=== PATIENT | female | born 1975 | race Caucasian/White ===

== ENCOUNTER 2021-06-11 04:38 | Emergency (ER) | payer OTHER, SELFPAY ==
--- NOTE | ~2021-06-11 | US_ITS ---
EXAMINATION: US PELVIS CLINICAL INFORMATION: Pain and vaginal discharge. Perimenopausal. COMPARISON: Pelvic ultrasound dated from 06/15/2020. TECHNIQUE: Ultrasound of the pelvis is performed using both transabdominal and transvaginal transducers along with Doppler. Transvaginal imaging is performed due to inadequate visualization transabdominally. FINDINGS: Uterus: The uterus is retroverted and measures 6.0 x 3.3 x 5.3 cm. There is redemonstration of several fibroids as follow: 1. A 1.3 x 0.9 x 1.2 cm fibroid in the left fundus (previously 1.4 x 1.8 x 1.7 cm). 2. A 1.2 x 1.2 x 1.2 cm fibroid in the left fundus (previously 1.1 x 1.0 x 1.1 cm). 3. A 1.7 x 0.7 x 1.8 cm fibroid in the right mid uterine body (previously 1.5 x 0.7 x 1.3 cm). Nabothian cyst are again noted overlying the cervix. The endometrium is not well visualized in this study due to distortion from overlying fibroids and poor acoustic windows in the setting of shadowing from overlying bowel gas. The right ovary measures 2.9 x 2.0 x 1.1 cm for a volume of 3.3 mL. There is a 2.7 x 2.1 x 2.1 cm exophytic anechoic lesion with thin palencia and no associated vascular flow, likely representing a functional follicle which does not require further workup. There is preserved flow to the right ovary on color Doppler. The right ovary is not visualized in these the study. US/US pelvic and transvaginal IMPRESSION: Multiple uterine fibroids. Small nabothian cysts in the cervix. The endometrium and right adnexa are suboptimally evaluated in this study. Therefore abnormalities within these structures are not excluded.
[2021-06-11 07:47] VITALS: BP 153/81; PULSE 103; RESP 18; TEMP 37.2; O2SAT 100; BMI 23.1
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
[2021-06-11 08:44] LABS: MANUAL DIFF FLAG NO
[2021-06-11 08:46] LABS: Basophils Percent Auto 0.2 % (0-2); Eosinophils Absolute Auto 0.2 X10*3/uL (0.0-0.4); Eosinophils Percent Auto 4.2 % (0-4); Hematocrit 38.8 % (37-47); Hemoglobin 12.9 g/dl (12.0-16.0); Lymphocytes Absolute Auto 1.9 X10*3/uL (1.2-4.9); Lymphocytes Percent Auto 37.7 % (20-40); Mean Corpuscular HGB Conc 33.2 g/dl (31.0-35.0); Mean Corpuscular Hemoglobin 31.5 pg (27.0-33.0); Mean Corpuscular Volume 94.9 fL (80-98); Mean Platelet Volume 9.9 fL (9.4-12.3); Monocytes Absolute Auto 0.3 X10*3/uL (0.1-1.2); Monocytes Percent Auto 6.8 % (2-11); Neutrophils Absolute Auto 2.6 X10*3/uL (2.0-8.3); Neutrophils Percent Auto 51.1 % (45-73); Platelet Count 247 X10*3/uL (160-400); Red Blood Count 4.09 X10*6/uL (4.20-5.50); Red Cell Distribution Width 12.4 % (11.0-16.0)
[2021-06-11 09:45] LABS: Alanine Aminotransferase 17 U/L (0-31); Albumin Level 3.7 g/dL (3.5-5.0); Alkaline Phosphatase 127 U/L (39-117); Anion Gap 13 (12-20); Aspartate Amino Transferase 21 U/L (5-31); Bilirubin Direct 0.2 mg/dL (0.0-0.5); Bilirubin Total 0.3 mg/dL (0.0-1.0); Blood Urea Nitrogen 16 mg/dL (9-16); Calcium 9.4 mg/dL (8.4-10.2); Carbon Dioxide 29 mmol/L (22-29); Chloride 105 mmol/L (96-108); Creatinine Clr Calc Pharmacy 95.3; Estimated Glomerular Filt Rate > 60; Glucose Random 92 mg/dL (60-115); Lipase 11 U/L (8-78); Potassium 5.5 mmol/L (3.3-5.1); Sodium 141 mmol/L (135-145); Total Protein 6.2 g/dL (6.5-8.0)
[2021-06-11 09:52] LABS: Appearance Urine CLOUDY; Color Urine YELLOW; Glucose Urine UA NEG (NEG); Leukocyte Esterase Urine 2+ (NEG); Nitrite Urine POS (NEG); Specific Gravity - Urine >= 1.030 (1.005-1.025); UACC Culture Trigger YES; Urine Blood TRACE (NEG); Urine Ketones 5 MG/DL (NEG); Urine Protein 1+ MG/DL (NEG-TRACE)
[2021-06-11 09:56] LABS: UPreg QC Valid YES; Urine Pregnancy NEGATIVE (NEGATIVE)
[2021-06-11 10:02] LABS: Bacteria Urine 3+ /LPF; RBC Urine 0-2 /HPF (0); Squamous Epithelial Cell Urine 1+ /LPF
[2021-06-11] MEDS: Phenazopyridine HCL 200 MG TABLET PO (10:06)
--- NOTE | 2021-06-11 10:49 | PC.NURSE ---
PTS MAIN COMPLAINT TODAY IS DYSURIA. PT TOLERATING PO FLUIDS, NO N/V/D.
[2021-06-11 10:57] VITALS: RESP 18
[2021-06-11 11:00] VITALS: PULSE 70; RESP 8; TEMP 37; O2SAT 97
[2021-06-11 12:45] LABS: CT PCR NOT DETECTED (Not Detect.); NG PCR NOT DETECTED (Not Detect.)
[2021-06-12 08:41] LABS: BV Int Neg Control Negative (Negative); BV Int Pos Control Positive (Positive)
== END 2021-06-11 11:00 | disposition home or self-care (01) ==
PROVIDERS: Emergency Provider Emergency Medicine; PCP Internal Medicine
DX: D25.9 Leiomyoma of uterus, unspecified (principal); N76.0 Acute vaginitis; N30.01 Acute cystitis with hematuria; M54.5 Low back pain; Z79.899 Other long term (current) drug therapy
CPT/HCPCS: 36415; 76830; 76856; 80048; 80076; 81001; 81025; 83690; 85025; 87086; 87088; 87186; 87480; 87491; 87510; 87591; 87660; 99283; 99284

== ENCOUNTER 2021-08-12 13:58 | Emergency (ER) | payer OTHER, SELFPAY ==
--- NOTE | 2021-08-12 | ECG_ITS ---
Test Reason : general medical Blood Pressure : / mmHG Vent. Rate : 100 BPM Atrial Rate : 100 BPM P-R Int : 134 ms QRS Dur : 078 ms QT Int : 352 ms P-R-T Axes : 072 075 050 degrees QTc Int : 454 ms Sinus tachycardia Intra-ventricular conduction delay Otherwise normal ECG When compared with ECG of 15-JUN-2020 04:11, Heart rate has increased Referred By: Generic ED Physician Electronically Signed By:NAVYA VERGARA MD
--- NOTE | ~2021-08-12 | CT_ITS ---
EXAMINATION: CT CHEST WITHOUT CONTRAST CLINICAL INFORMATION: Right lower lobe lung nodule seen on chest radiograph COMPARISON: Chest radiograph earlier today, CT abdomen pelvis 06/15/2020 TECHNIQUE: Multidetector volumetric CT imaging of the chest was done. Axial MIP volume rendering provided. Sagittal and coronal reformatted images were obtained. This CT examination was performed using dose optimization techniques as appropriate, variously including the following: *Automated exposure control *Adjustment of mA and/or kV according to patient size (this includes techniques or standardized protocols for targeted exams where dose is matched to indication/reason for exam; i.e. extremities or head) *Use of iterative reconstruction technique DLP: 322 mGy-cm FINDINGS: LUNGS: No corresponding abnormality is seen to the opacity seen on the chest radiograph. However, a number of incidentally noted small pulmonary micronodules seen ranging in size from 2 to 3 mm to up to 5 mm in size (26:262). One of these nodules was not included on the prior abdominal CT and is unchanged. Images of all nodules have been saved as flores images MEDIASTINUM: The mediastinum is normal. PLEURA: There is no pleural effusion. No pleural mass or thickening. AXILLA: No lymphadenopathy. UPPER ABDOMEN: Again seen are changes of gastric surgery. Hepatic steatosis is present, new since the prior study.. OSSEOUS STRUCTURES: Unremarkable. CT/CT chest wo con IMPRESSION: No abnormality seen on the chest CT to correspond to the abnormality seen on the chest radiograph. Incidentally noted lung nodules up to 5 mm in size. According to the UPDATED 2017 Fleischner Society recommendations, the advised follow-up imaging for solid nodules < 6 mm is: LOW RISK PATIENT: No routine follow-up. HIGH RISK PATIENT: Optional CT at 12 months. Fleischner guidelines were followed.
--- NOTE | ~2021-08-12 | CT_ITS ---
EXAMINATION: CT HEAD WITHOUT CONTRAST CT CERVICAL SPINE WITHOUT CONTRAST CLINICAL INFORMATION: Slurred speech, weakness. COMPARISON: None TECHNIQUE: Contiguous axial imaging was performed from the skull base to vertex without intravenous administration of contrast. Contiguous axial imaging was performed from the upper chest through the skull base without intravenous administration of contrast. Coronal and sagittal reformats were obtained at the acquisition workstation. This CT examination was performed using dose optimization techniques as appropriate, variously including the following: *Automated exposure control *Adjustment of mA and/or kV according to patient size (this includes techniques or standardized protocols for targeted exams where dose is matched to indication/reason for exam; i.e. extremities or head) *Use of iterative reconstruction technique DLP: 79 mGy-cm FINDINGS: Head: There is no evidence of acute intracranial hemorrhage or edematous territorial infarction. There is no abnormal attenuation within the brain parenchyma. Beltran-white matter differentiation is preserved. The ventricles are normal in size and configuration. No evidence for obstructive hydrocephalus. No abnormal mass effect or midline shift. No extra-axial fluid collections. No acute soft tissue or osseous abnormalities. The mastoid air cells and paranasal sinuses are clear. Cervical Spine: The atlantooccipital and atlantoaxial articulations remain well aligned. Straightening of the normal cervical lordosis. Otherwise, there is anatomic alignment of the vertebral bodies and posterior elements. No evidence of acute fracture or subluxation. Mild cervical spondylosis. There is no prevertebral soft tissue swelling. The thyroid gland and remaining cervical soft tissues are normal in appearance. There is a 0.3 cm pulmonary nodule in the right apex (19:346). CT/CT cervical spine wo con IMPRESSION: No acute intracranial pathology. No acute cervical spinal fractures or malalignment. Incidentally noted is made of a 0.3 cm pulmonary nodule in the right upper lobe. This could be follow-up as per Fleischner criteria (see below). Correlate with same day CT chest. 2017 Fleischner Society Recommendations for Lung Nodule(s): Single Solid low risk nodule < 6 mm: No routine follow-up imaging is recommended in low risk and high risk patients. These guidelines do not apply to patients younger than 35 years, immunocompromised patients, and patients with cancer. F/u in patients with significant comorbidities as clinically warranted. For lung cancer screening, adhere to Lung-RADS guidelines. Reference: Radiology. 2017 Mar; 284(1):228-049
--- NOTE | ~2021-08-12 | XR_ITS ---
EXAMINATION: XR CHEST CLINICAL INFORMATION: Diminished lung sounds on exam. COMPARISON: None TECHNIQUE: 2 views of the chest were obtained. FINDINGS: The lungs are well-expanded and clear of acute pneumonic process. The heart size and pulmonary vascularity is normal. There is soft tissue density right CP angle on PA projection question artifact versus nodule. This is not visualized lateral view. No gross bony abnormality seen. XR/XR chest 2V IMPRESSION: Unremarkable chest exam except for a soft tissue nodule in the right CP angle likely artifact. Recommend oblique views of the chest or CT chest without contrast.
[2021-08-12 14:00] VITALS: BP 176/113; PULSE 110; RESP 18; TEMP 36.6; O2SAT 98; BMI 22.3
[2021-08-12 14:58] LABS: Ethanol < 10 mg/dL
[2021-08-12 15:00] LABS: Basophils Percent Auto 0.1 % (0-2); Eosinophils Percent Auto 0.1 % (0-4); Hemoglobin 13.2 g/dl (12.0-16.0); Imm Gran Pct Auto 0.6 % (0.0-0.4); Lymphocytes Absolute Auto 1.6 X10*3/uL (1.2-4.9); Lymphocytes Percent Auto 9.9 % (20-40); Mean Corpuscular HGB Conc 34.7 g/dl (31.0-35.0); Mean Corpuscular Hemoglobin 33.7 pg (27.0-33.0); Mean Corpuscular Volume 96.9 fL (80.0-98.0); Monocytes Percent Auto 5.8 % (2-11); Neutrophils Absolute Auto 13.8 x10*3/uL (2.0-8.3); Neutrophils Percent Auto 83.5 % (45-73); Platelet Count 279 X10*3/uL (160-400); Red Blood Count 3.92 X10*6/uL (4.20-5.50); Red Cell Distribution Width 12.9 % (11.0-16.0); White Blood Count 16.5 X10*3/uL (4.8-10.8)
[2021-08-12 15:00] LABS: Anion Gap 15 (12-20); Blood Urea Nitrogen 12 mg/dL (9-16); Calcium 8.8 mg/dL (8.4-10.2); Carbon Dioxide 22 mmol/L (22-29); Chloride 100 mmol/L (96-108); Creatinine Clr Calc Pharmacy 80.1; Estimated Glomerular Filt Rate > 60; Glucose Random 97 mg/dL (60-115); Potassium 3.4 mmol/L (3.3-5.1); Sodium 134 mmol/L (135-145)
[2021-08-12 15:01] LABS: MANUAL DIFF FLAG NO
[2021-08-12 15:20] LABS: Appearance Urine HAZY; Color Urine YELLOW; Glucose Urine UA NEG (NEG); Leukocyte Esterase Urine NEG (NEG); Nitrite Urine NEG (NEG); PH 5.5 (5.0-8.0); Specific Gravity - Urine >= 1.030 (1.005-1.025); UACC Culture Trigger NO; Urine Blood NEG (NEG); Urine Ketones NEG (NEG); Urine Protein 1+ MG/DL (NEG-TRACE)
[2021-08-12 15:32] LABS: RBC Urine 0-2 /HPF (0); Squamous Epithelial Cell Urine 2+ /LPF
[2021-08-12 15:33] LABS: Bacteria Urine TRACE /LPF; Mucus Urine 3+ /LPF
[2021-08-12 15:38] LABS: Amphetamine Screen Urine Not Detected (Not Detect); Barbiturates, Urine Not Detected (Not Detect); Benzodiazepines Screen Urine POSITIVE (Not Detect); Cannabinoid Screen Urine Not Detected (Not Detect); Cocaine Screen Urine Not Detected (Not Detect); Fentanyl, urine POSITIVE (Not Detect); Opiate Screen Urine Not Detected (Not Detect); Phencyclidine Screen Urine Not Detected (Not Detect)
--- NOTE | 2021-08-12 16:17 | ED_ITS ---
HPI - General Adult General Chief complaint: General Medical Stated complaint: uncontrolled body movement Time Seen by Provider: 08/12/21 16:14 Source: patient Mode of arrival: ambulatory Limitations: other (poor historian ) History of Present Illness HPI narrative: 46 yo female past medical history significant for anemia, and opiate use disorder presents to the emergency department with concerns of malaise, fevers, chills, feeling shaky, and having muscle spasms, X2 days. Patient tells me this started out of nowhere, and this has never happened to her before. She tells me she has felt feverish but she has not taken her temperature. She tells me she is shaky but with movement and at rest and nothing makes it better or worse. She states from time to time she feels paresthesias. She denies chest pain, shortness of breath, nausea, vomiting, abdominal pain, headache, dizziness, numbness. Patient tells me she does not use drugs, does not smoke. She also tells me she doesn't consume alcohol. She denies visual, auditory and tactile hallucinations. Related Data Previous Rx's Medication Instructions Recorded cefuroxime axetil 500 mg tablet 500 mg PO BID 7 Days #14 tab 06/11/21 cyclobenzaprine 10 mg tablet 10 mg PO TID PRN #14 tab 06/11/21 ibuprofen 600 mg tablet 600 mg PO Q6H PRN #30 tab 06/11/21 lidocaine 4 % topical patch 1 patch TOPICAL DAILY PRN #10 ea 06/11/21 ondansetron 4 mg disintegrating 4 mg PO Q8H PRN #20 tab 06/11/21 tablet phenazopyridine 100 mg tablet 100 mg PO TID PRN #6 tab 06/11/21 (Pyridium) Allergies Allergy/AdvReac Type Severity Reaction Status Date / Time Penicillins [PCN] Allergy Intermediate HIVES Verified 06/11/21 07:46 Review of Systems Review of Systems: Constitutional : No Weight loss, No Fever, No Chills, No Fatigue, + Malaise ENT/Mouth : No sore throat, No Rhinorrhea Eyes: No Eye Pain, No Swelling, No Redness Cardiovascular : No Chest Pain, No SOB, No Dyspnea on Exertion, No Orthopnea, No Edema, No Palpitations Respiratory : No Cough, No Sputum, No Wheezing Gastrointestinal : No Nausea, No Vomiting, No Diarrhea, No Constipation, No abdominal Pain, No Hematochezia, No Melena Genitourinary : No Dysuria, No Urinary Frequency, No Hematuria, Musculoskeletal : No joint pain, No Myalgias, No Joint Swelling, + muscle spasms Skin : No Skin Lesions, No rash Neuro : No Weakness, No Numbness, No Dizziness, No Headache All other systems reviewed and are negative PMFSH Past Medical History Attestation statement: The following information was validated with the patient. Source: old records reviewed and nursing notes reviewed Medical History Anemia Uterine fibroid Social History Social History (Updated 06/11/21 @ 08:10 by Tati Benedict DO) Alcohol intake: current Alcohol intake frequency: holidays/special occasions only Patient Tobacco Use Status: Current everyday Tobacco user Use of substances other than those prescribed or required for medical reasons: No Substance Use Frequency Other:: pt denying substance use Advance Directives: No Advance Directives Information Provided: No Physical Exam Vital Signs: Vital Signs: Last Vital Signs Temp 98 F 08/12/21 14:00 Pulse 103 H 08/12/21 17:05 Resp 18 08/12/21 17:05 BP 169/108 H 08/12/21 17:05 Pulse Ox 95 08/12/21 17:05 Body Mass Index 22.3 Upon my initial evaluation patient is noted to be hypertensive 176/113, with a pulse of 110. Patient is afebrile, and saturating 98% on room air. Appearance: Alert.? Oriented X3.? Patient appears very anxious and paranoid. Head: Normocephalic, atraumatic, no step-offs or deformities Eyes: Pupils equal, round and reactive to light.? Extraocular movements intact. ENT: Pharynx normal.? Neck: Normal inspection.? Neck supple.? CVS: rapid rate normal rythem.? Pulses normal.? Respiratory: No respiratory distress.? Diminished breath sounds bilaterally.? Abdomen: Soft and nontender.? Skin: Skin warm and dry.? Normal skin color.? Normal skin turgor.? Extremities: No lower extremity edema.? No calf ttp. 5/5 strength to bilateral upper and lower extremities. She has active and resting tremors to bilateral upper and lower extremities. Back: No midline tenderness, no C-spine tenderness, full range of motion, no CVA tenderness bilaterally Neuro: Oriented X 3.? No motor deficit.? No sensory deficit. Cranial nerves 2- 12 intact. Steady gait no ataxia. Normal finger to nose. Heel to astudillo. 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 Course Reevaluation(s) Reevaluation #1: After further conversation with the patient she admits that she has been buying what she thinks is a benzodiazepine from a friend, she tells me she feels like maybe she is withdrawing from this medication. She tells me she does not use fentanyl. She also told me that she stop taking Suboxone because she felt like it was not necessary. She tells me that her provider was out of [facility] on [facility] in [place]. I asked her if she needed any resources such as a transit coach operator or N evaluation, and she told me she feels like she is fine and does not require these resources. She tells me she does not think she is feeling shaky because of withdrawal or drug use. She also mentions to me that she is shaking so much she feels like she is having difficulty speaking, however she is speaking clear with fluid speech. I did explain to the patient that her white blood cell count was elevated, and her lung sounds were diminished bilaterally, for that reason I ordered a chest x-ray, and ordered flu/COVID/RSV. Place off patient's history, physical examination I believe that patient is in an acute opiate withdrawal. Patient appears restless, anxious, tachycardic. She also reports muscle aches and subjective fevers.. She is meeting all DSM 5 criteria for opiate withdrawal Time: 16:58 Reevaluation #2: X-ray shows a possible soft tissue nodule in the right costophrenic angle which could be artifact, however due to patient's history of IV drug use, and elevated white blood cell count I will do a CT of the chest to rule out an abscess. patient also tells me she is very worried about her slurred speech Ct scan of the head will be doen to rule out intra cranial pathology such as stroke/ICH Time: 17:50 Reevaluation #3: CT of head/ cervical spine negative. Incidentally noted a 0.3 cm pulmonary nodule in right upper lobe. Time: 19:14 Additional Reevaluation(s): 1912 Unable to identify source causing leukocytosis. Urine is clean, chest x-ray shows no signs of infection. At this time I will draw blood cultures and a lactic acid. I do not suspect infection at this time, I feel as though this is likely an inflammatory response. CT of the chest consistent with pulmonary nodule. Based off patient's history of IV druAbuse I will advise her to follow-up with her PCP for follow-up. Patient remains hypertensive and tachycardic, likely secondary to opiate withdrawal. Patient has been offered resources such as his transit coach operator is [place], patient declined. Patient has been advised to follow-up with her PCP for blood pressure check, and to follow up this pulmonary nodule. She is safe for discharge home with PCP follow-up. She has been advised to stop using drugs, return to the emergency department with new or worsening symptoms. Medical Decision Making [facility] Narrative Medical decision making narrative: 1619 46-year-old female past medical history significant for opiate use disorder, anemia presents to the emergency department with multiple complaints including feeling shakey , paresthesias, malaise, chills and subjective fevers 2 days. I asked patient if she used any drugs, alcohol or tobacco and she told me know. She tells me she is not sure why she is feeling this way but this has never happened to her before. Laboratory studies revealed positive fentanyl and benzodiazepines. She was also noted to have an elevated white blood cell count, with no acute electrolyte abnormalities. Her urine was clean for infection. Upon physical examination patient appears anxious and paranoid, she is not well kempt. S1-S2 appreciated free of murmurs. There is a rapid regular rhythm noted. Diminished breath sounds appreciated bilaterally. Abdomen soft nontender nondistended. 5/5 strength upper and lower extremities. Patient is noted to have an active and resting tremor. No focal neuro deficits. [id number] normal, [id number] normal. Patient ambulating with a steady gait. Cranial nerves 2-12 intact. I reviewed patient's Mass Pat, and noted that patient is supposed to be taking Suboxone 8mg last filled on 07/13. It appears as though patient is no longer taking this. I will discuss laboratory findings, and ask patient as to why she is no longer taking Suboxone. Patients young son is at the bedside I will speak to patient in private. Lab Data Result diagrams: 08/12/21 14:55 08/12/21 14:33 Labs: Lab Results 08/12/21 08/12/21 08/12/21 Range/Units 14:33 14:33 14:55 WBC 16.5 H (4.8-10.8) X10*3/uL RBC 3.92 L (4.20-5.50) X10*6/uL Hgb 13.2 (12.0-16.0) g/dl Hct 38.0 (37.0-47.0) % MCV 96.9 (80.0-98.0) fL MCH 33.7 H (27.0-33.0) pg MCHC 34.7 (31.0-35.0) g/dl RDW 12.9 (11.0-16.0) % Plt Count 279 (160-400) X10*3/uL MPV 9.0 L (9.4-12.3) fL Immature Gran % (Auto) 0.6 H (0.0-0.4) % Neut % (Auto) 83.5 H (45-73) % Lymph % (Auto) 9.9 L (20-40) % Weakley % (Auto) 5.8 (2-11) % Eos % (Auto) 0.1 (0-4) % Baso % (Auto) 0.1 (0-2) % Lymph # (Auto) 1.6 (1.2-4.9) X10*3/uL Weakley # (Auto) 1.0 (0.1-1.2) X10*3/uL Eos # (Auto) 0.0 (0.0-0.4) X10*3/uL Baso # (Auto) 0.0 (0.0-0.2) X10*3/uL Abs Immat Gran (auto) 0.10 H (0.00-0.03) X10*3/uL Absolute Neuts (auto) 13.8 H (2.0-8.3) x10*3/uL Absolute Nucleated RBC 0.000 (0.0-0.012) X10*3/uL Nucleated RBC % (auto) 0.0 (0.0-0.2) /100WBC Sodium 134 L (135-145) mmol/L Potassium 3.4 D (3.3-5.1) mmol/L Chloride 100 (96-108) mmol/L Carbon Dioxide 22 (22-29) mmol/L Anion Gap 15 (12-20) BUN 12 (9-16) mg/dL Creatinine 0.75 (0.5-1.4) mg/dL Estim Creat Clear Calc 80.1 Estimated GFR > 60 Random Glucose 97 (60-115) mg/dL Lactic Acid (0.5-2.0) mmol/L Calcium 8.8 D (8.4-10.2) mg/dL Urine Color Urine Appearance Urine pH (5.0-8.0) Ur Specific Ewing (1.005-1.025) Urine Protein (NEG-TRACE) MG/DL Urine Glucose (UA) (NEG) MG/DL Urine Ketones (NEG) MG/DL Urine Blood (NEG) Urine Nitrite (NEG) Ur Leukocyte Esterase (NEG) Urine RBC (0) /HPF Urine WBC (0-4) /HPF Ur Squamous Epith Cells /LPF Urine Bacteria /LPF Hyaline Casts /LPF Urine Mucus /LPF Urine Opiates Screen (Not Detect) Urine Fentanyl Screen (Not Detect) Ur Barbiturates Screen (Not Detect) Ur Phencyclidine Scrn (Not Detect) Ur Amphetamines Screen (Not Detect) U Benzodiazepines Scrn (Not Detect) Urine Cocaine Screen (Not Detect) U Marijuana (THC) Screen (Not Detect) Ethyl Alcohol < 10 mg/dL Influenza Type A (PCR) (Negative) Influenza Type B (PCR) (Negative) RSV RNA Qual (PCR) (Negative) SARS-CoV-2 RNA (RT-PCR) (Negative) 08/12/21 08/12/21 08/12/21 Range/Units 15:08 15:08 16:52 WBC (4.8-10.8) X10*3/uL RBC (4.20-5.50) X10*6/uL Hgb (12.0-16.0) g/dl Hct (37.0-47.0) % MCV (80.0-98.0) fL MCH (27.0-33.0) pg MCHC (31.0-35.0) g/dl RDW (11.0-16.0) % Plt Count (160-400) X10*3/uL MPV (9.4-12.3) fL Immature Gran % (Auto) (0.0-0.4) % Neut % (Auto) (45-73) % Lymph % (Auto) (20-40) % Weakley % (Auto) (2-11) % Eos % (Auto) (0-4) % Baso % (Auto) (0-2) % Lymph # (Auto) (1.2-4.9) X10*3/uL Weakley # (Auto) (0.1-1.2) X10*3/uL Eos # (Auto) (0.0-0.4) X10*3/uL Baso # (Auto) (0.0-0.2) X10*3/uL Abs Immat Gran (auto) (0.00-0.03) X10*3/uL Absolute Neuts (auto) (2.0-8.3) x10*3/uL Absolute Nucleated RBC (0.0-0.012) X10*3/uL Nucleated RBC % (auto) (0.0-0.2) /100WBC Sodium (135-145) mmol/L Potassium (3.3-5.1) mmol/L Chloride (96-108) mmol/L Carbon Dioxide (22-29) mmol/L Anion Gap (12-20) BUN (9-16) mg/dL Creatinine (0.5-1.4) mg/dL Estim Creat Clear Calc Estimated GFR Random Glucose (60-115) mg/dL Lactic Acid (0.5-2.0) mmol/L Calcium (8.4-10.2) mg/dL Urine Color YELLOW Urine Appearance HAZY Urine pH 5.5 (5.0-8.0) Ur Specific Ewing >= 1.030 H (1.005-1.025) Urine Protein 1+ H (NEG-TRACE) MG/DL Urine Glucose (UA) NEG (NEG) MG/DL Urine Ketones NEG (NEG) MG/DL Urine Blood NEG (NEG) Urine Nitrite NEG (NEG) Ur Leukocyte Esterase NEG (NEG) Urine RBC 0-2 (0) /HPF Urine WBC 1-4 (0-4) /HPF Ur Squamous Epith Cells 2+ /LPF Urine Bacteria TRACE /LPF Hyaline Casts 15-29 /LPF Urine Mucus 3+ /LPF Urine Opiates Screen Not Detected (Not Detect) Urine Fentanyl Screen POSITIVE H (Not Detect) Ur Barbiturates Screen Not Detected (Not Detect) Ur Phencyclidine Scrn Not Detected (Not Detect) Ur Amphetamines Screen Not Detected (Not Detect) U Benzodiazepines Scrn POSITIVE H (Not Detect) Urine Cocaine Screen Not Detected (Not Detect) U Marijuana (THC) Screen Not Detected (Not Detect) Ethyl Alcohol mg/dL Influenza Type A (PCR) NEGATIVE (Negative) Influenza Type B (PCR) NEGATIVE (Negative) RSV RNA Qual (PCR) NEGATIVE (Negative) SARS-CoV-2 RNA (RT-PCR) NEGATIVE (Negative) 08/12/21 Range/Units 20:05 WBC (4.8-10.8) X10*3/uL RBC (4.20-5.50) X10*6/uL Hgb (12.0-16.0) g/dl Hct (37.0-47.0) % MCV (80.0-98.0) fL MCH (27.0-33.0) pg MCHC (31.0-35.0) g/dl RDW (11.0-16.0) % Plt Count (160-400) X10*3/uL MPV (9.4-12.3) fL Immature Gran % (Auto) (0.0-0.4) % Neut % (Auto) (45-73) % Lymph % (Auto) (20-40) % Weakley % (Auto) (2-11) % Eos % (Auto) (0-4) % Baso % (Auto) (0-2) % Lymph # (Auto) (1.2-4.9) X10*3/uL Weakley # (Auto) (0.1-1.2) X10*3/uL Eos # (Auto) (0.0-0.4) X10*3/uL Baso # (Auto) (0.0-0.2) X10*3/uL Abs Immat Gran (auto) (0.00-0.03) X10*3/uL Absolute Neuts (auto) (2.0-8.3) x10*3/uL Absolute Nucleated RBC (0.0-0.012) X10*3/uL Nucleated RBC % (auto) (0.0-0.2) /100WBC Sodium (135-145) mmol/L Potassium (3.3-5.1) mmol/L Chloride (96-108) mmol/L Carbon Dioxide (22-29) mmol/L Anion Gap (12-20) BUN (9-16) mg/dL Creatinine (0.5-1.4) mg/dL Estim Creat Clear Calc Estimated GFR Random Glucose (60-115) mg/dL Lactic Acid 1.0 (0.5-2.0) mmol/L Calcium (8.4-10.2) mg/dL Urine Color Urine Appearance Urine pH (5.0-8.0) Ur Specific Ewing (1.005-1.025) Urine Protein (NEG-TRACE) MG/DL Urine Glucose (UA) (NEG) MG/DL Urine Ketones (NEG) MG/DL Urine Blood (NEG) Urine Nitrite (NEG) Ur Leukocyte Esterase (NEG) Urine RBC (0) /HPF Urine WBC (0-4) /HPF Ur Squamous Epith Cells /LPF Urine Bacteria /LPF Hyaline Casts /LPF Urine Mucus /LPF Urine Opiates Screen (Not Detect) Urine Fentanyl Screen (Not Detect) Ur Barbiturates Screen (Not Detect) Ur Phencyclidine Scrn (Not Detect) Ur Amphetamines Screen (Not Detect) U Benzodiazepines Scrn (Not Detect) Urine Cocaine Screen (Not Detect) U Marijuana (THC) Screen (Not Detect) Ethyl Alcohol mg/dL Influenza Type A (PCR) (Negative) Influenza Type B (PCR) (Negative) RSV RNA Qual (PCR) (Negative) SARS-CoV-2 RNA (RT-PCR) (Negative) Imaging Data Chest x-ray: Attestation: I personally reviewed and interpreted this imaging study as follows: Radiologist's impression: XR/XR chest 2V IMPRESSION: Unremarkable chest exam except for a soft tissue nodule in the right CP angle likely artifact. Recommend oblique views of the chest or CT chest without contrast. Critical Care Time Critical Care Time Critical Care Time: No Discharge Plan Discharge Clinical Impression: Opiate withdrawal, Pulmonary nodule Patient Disposition: Home, Self-Care Instructions: Opioid Withdrawal (ED) Additional Instructions: You were found to have a pulmonary nodule. Your urine showed fentanyl and benzodiazepines Follow-up with your primary care provider this week for a blood pressure check and to follow up on a pulmonary nodule seen on CT scan. Return to the emergency department with new or worsening symptoms. In case of emergency call 911 Taking medication that is not your own, or is somebody else's is not safe as it can be laced with other things. Please stay away from drugs. They can kill you. Prescriptions: No Action cyclobenzaprine 10 mg tablet 10 mg PO TID PRN (Reason: muscle spasm) Qty: 14 RF: 0 lidocaine 4 % adhesive patch,medicated 1 patch topical DAILY PRN (Reason: pain) Qty: 10 RF: 0 ibuprofen 600 mg tablet 600 mg PO Q6H PRN (Reason: pain) Qty: 30 RF: 0 ondansetron 4 mg tablet,disintegrating 4 mg PO Q8H PRN (Reason: nausea and vomiting) Qty: 20 RF: 0 cefuroxime axetil 500 mg tablet 500 mg PO BID 7 Days Qty: 14 RF: 0 phenazopyridine [Pyridium] 100 mg tablet 100 mg PO TID PRN (Reason: pain) Qty: 6 RF: 0 Referrals: Thomas Ac MD [Primary Care Provider] - 2 days
[2021-08-12 17:05] VITALS: BP 169/108; PULSE 103; RESP 18; O2SAT 95
[2021-08-12 17:36] LABS: Influenza A PCR NEGATIVE (Negative); Influenza B PCR NEGATIVE (Negative); Resp Syncy Virus RNA Qual PCR NEGATIVE (Negative); SARS COV2 PCR INHOUSE NEGATIVE (Negative)
--- NOTE | 2021-08-12 18:07 | PC.NURSE ---
patient a&ox3, son at bedside, pt c/o 04/28 abd pain, pt awaiting results of radiology, will continue to monitor.
== END 2021-08-12 21:09 | disposition home or self-care (01) ==
PROVIDERS: Physician Assistant; Emergency Provider Emergency Medicine; PCP Internal Medicine
DX: F11.23 Opioid dependence with withdrawal (principal); R91.1 Solitary pulmonary nodule; Z20.822 Contact with and (suspected) exposure to COVID-19; Z79.899 Other long term (current) drug therapy
CPT/HCPCS: 0241U; 36415; 70450; 71046; 71250; 72125; 80048; 80307; 81001; 82077; 83605; 85025; 87040; 93005; 99284

== ENCOUNTER 2021-09-01 17:58 | Emergency (ER) | payer OTHER, SELFPAY ==
--- NOTE | ~2021-09-01 | XR_ITS ---
EXAMINATION: XR CHEST CLINICAL INFORMATION: Chest pain, shortness of breath and cough COMPARISON: CT of the chest 08/12/2021 and chest radiograph 08/12/2021 TECHNIQUE: 2 views of the chest were obtained. FINDINGS: Normal cardiomediastinal silhouette. Adequate expansion of the lungs. No focal consolidation. No pleural effusion or pneumothorax. No acute osseous abnormality. XR/XR chest 2V IMPRESSION: No acute disease within the chest. No focal consolidation.
--- NOTE | 2021-09-01 18:02 | ECG_ITS ---
Test Reason : CHEST PAIN Blood Pressure : / mmHG Vent. Rate : 109 BPM Atrial Rate : 109 BPM P-R Int : 128 ms QRS Dur : 078 ms QT Int : 336 ms P-R-T Axes : 068 069 066 degrees QTc Int : 452 ms Sinus tachycardia Otherwise normal ECG When compared with ECG of 12-AUG-2021 14:14, No significant changes seen Referred By: Jimmy Garrett Electronically Signed By:HAROLDO DAVIS MD
--- NOTE | 2021-09-01 18:02 | ED.CHESTPAIN ---
HPI - Chest Pain General Chief Complaint: Chest Pain Stated Complaint: chest pain/vomiting Time Seen by Provider: 09/01/21 18:02 Source: patient Mode of arrival: EMS Limitations: no limitations History of Present Illness HPI narrative: This is a 46-year-old female past medical history significant for anemia, opiate use disorder with opiate withdrawal presenting to the emergency department with malaise, productive cough, chest pain, shortness of breath and fatigue x2 weeks. Patient tells me that today her son called the ambulance because she has not gotten out of bed for 2 weeks, she tells me she feels tired and ?sick ?. She tells me she is coughing up thick sputum, that is yellow/green. She tells me that she is having chest pain that a centralized, nonradiating, intermittent severe. She also reports associated fevers and chills, she has not taken her temperature at home. Also reprots significant weight loss about 20 lbs in 1 month due to decreased PO intake. Denies nausea, vomiting, abdominal pain. She is vaccinated against COVID-19 complaint: chest pain Onset (ago): week(s) (2) Timing of current episode: episodic Onset: during rest Pain location: substernal Pain radiation: none Severity: severe Pain scale (0-10): 10 Quality: sharp Relieving factors: nothing Exacerbating factors: nothing Associated symptoms: nausea Treatment prior to arrival: none Related Data Previous Rx's Medication Instructions Recorded cefuroxime axetil 500 mg tablet 500 mg PO BID 7 Days #14 tab 06/11/21 cyclobenzaprine 10 mg tablet 10 mg PO TID PRN #14 tab 06/11/21 ibuprofen 600 mg tablet 600 mg PO Q6H PRN #30 tab 06/11/21 lidocaine 4 % topical patch 1 patch TOPICAL DAILY PRN #10 ea 06/11/21 ondansetron 4 mg disintegrating 4 mg PO Q8H PRN #20 tab 06/11/21 tablet phenazopyridine 100 mg tablet 100 mg PO TID PRN #6 tab 06/11/21 (Pyridium) azithromycin 250 mg tablet See Rx Instructions PO .COMPLEX #6 09/01/21 tab benzonatate 100 mg capsule 100 mg PO BID PRN #14 cap 09/01/21 Allergies Allergy/AdvReac Type Severity Reaction Status Date / Time Penicillins [PCN] Allergy Intermediate HIVES Verified 06/11/21 07:46 Review of Systems Review of Systems: Constitutional : + Weight loss, + Fever, + Chills, + Fatigue, + Malaise ENT/Mouth : No sore throat, No Rhinorrhea Eyes: No Eye Pain, No Swelling, No Redness Cardiovascular : No Chest Pain, No SOB, No Dyspnea on Exertion, No Orthopnea, No Edema, No Palpitations Respiratory : No Cough, No Sputum, No Wheezing Gastrointestinal : No Nausea, No Vomiting, No Diarrhea, No Constipation, No abdominal Pain, No Hematochezia, No Melena Genitourinary : No Dysuria, No Urinary Frequency, No Hematuria, Musculoskeletal : No joint pain, No Myalgias, No Joint Swelling Skin : No Skin Lesions, No rash Neuro : No Weakness, No Numbness, No Dizziness, No Headache Psych : No Anxiety/Panic, No Depression All other systems reviewed and are negative Yes all other systems are reviewed and are negative FOR[facility]LY [facility] Past Medical History Attestation statement: The following information was validated with the patient. Source: old records reviewed and nursing notes reviewed Medical History Anemia Uterine fibroid Social History Social History Alcohol intake: current Alcohol intake frequency: 3 or more drinks per day Alcohol type: other Patient Tobacco Use Status: Current everyday Tobacco user Smoked in Last 30 Days: Yes Use of substances other than those prescribed or required for medical reasons: No Advance Directives: No Advance Directives Information Provided: Yes Patient : No Physical Exam Vital Signs: Vital Signs: Last Vital Signs Temp 99.3 F 09/01/21 20:15 Pulse 115 H 09/01/21 21:31 Resp 16 09/01/21 21:31 BP 137/95 H 09/01/21 21:31 Pulse Ox 98 09/01/21 21:31 BMI result Body Mass Index 20.5 Patient noted to be tachycardic, and hypertensive. Appearance: Alert.? Oriented X3.? No acute distress.?+ Patient appears unkempt, anxious. + patient coughing with a wet cough throughout my physical examination Head: Normocephalic, atraumatic, no step-offs or deformities Eyes: Pupils equal, round and reactive to light.?+ pinpoint pupils ENT: Pharynx normal.? Neck: Normal inspection.? Neck supple.? CVS: + normal rate, rapid rhythm, likely sinus tachycardia. Pulses normal.? Respiratory: No respiratory distress.? + bilateral lower lobe lung moscoso with crackles Abdomen: Soft and nontender.? Skin: Skin warm and dry.? Normal skin color.? Normal skin turgor.?+? Track moralez Extremities: No lower extremity edema.? No calf ttp. 5/5 strength to bilateral upper and lower extremities Back: No midline tenderness, no C-spine tenderness, full range of motion, no CVA tenderness bilaterally Neuro: Oriented X 3.? No motor deficit.? No sensory deficit. Course Reevaluation(s) Reevaluation #1: Patient noted to have a leukopenia likley secondary to viral URI, no anemia. Transaminases noted to be elevated, likely secondary to alcohol abuse. Patient's ethanol noted to be 270, fentanyl positive on urine toxicology. Time: 18:37 Reevaluation #2: Patient's chest x-ray clear. Trop 7.9, repeat trop for 9:30 pm. I suspect that patient's symptoms are secondary to fentanyl use, she had a similar presentation here in July of 2021, at that time again she was tachycardic, hypertensive, and she had similar complaints. She also had a negative workup at that time. She continues to tell me that she is not using drugs, alcohol or tobacco. Patient's blood alcohol level in the mid 200s. Time: 20:23 Reevaluation #3: Second troponin 7.3, unlikely that this is ACS. I will discharge patient home on azithromycin for bronchitis. I have advised patient to return to the emergency department with new or worsening symptoms. And if she develops fevers, chills, nausea, vomiting, abdominal pain, chest pain, shortness of breath, weakness, dizziness, vision changes or headache Time: 22:33 Additional Reevaluation(s): Patient's hypertension and tachycardia likely secondary to fentanyl abuse. MDM - Chest Pain MDM Narrative Medical decision making narrative: 1809 46-year-old female past medical history significant for anemia, opiate use disorder presents to the emergency department with multiple complaints including fevers, chills, productive cough, weakness, malaise, fatigue X 2 weeks and 20 lb weight loss in 1 month. Patient denies drug use. She denies all other constitutional symptoms Upon physical examination patient appears unkempt, and anxious. A rapid regular rhythm is noted, likely sinus tachycardia. There are crackles noted to bilateral lower lung moscoso. Patient is coughing throughout the examination with a wet cough. Abdomen soft nontender nondistended. Bilateral upper extremities with what appears to be track moralez. No focal neuro deficits. Pupils equal round reactive however, they are pinpoint. Plan at this time is to obtain a full workup, chest x-ray, basic labs, EKG, troponin, urine, urine toxicology. Based off patient's symptoms, and presentation I suspect that this is an upper respiratory infection, with opiate withdrawal. Medical Records Data Attestation: I reviewed the patient's medical records. Lab Data Attestation: I reviewed the patient's lab results. Result diagrams: 09/01/21 18:37 09/01/21 18:37 Labs: Lab Results 09/01/21 09/01/21 09/01/21 Range/Units 18:28 18:28 18:34 WBC (4.8-10.8) X10*3/uL RBC (4.20-5.50) X10*6/uL Hgb (12.0-16.0) g/dl Hct (37.0-47.0) % MCV (80.0-98.0) fL MCH (27.0-33.0) pg MCHC (31.0-35.0) g/dl RDW (11.0-16.0) % Plt Count (160-400) X10*3/uL MPV (9.4-12.3) fL Immature Gran % (Auto) (0.0-0.4) % Neut % (Auto) (45-73) % Lymph % (Auto) (20-40) % [place] % (Auto) (2-11) % Eos % (Auto) (0-4) % Baso % (Auto) (0-2) % Lymph # (Auto) (1.2-4.9) X10*3/uL [place] # (Auto) (0.1-1.2) X10*3/uL Eos # (Auto) (0.0-0.4) X10*3/uL Baso # (Auto) (0.0-0.2) X10*3/uL Abs Immat Gran (auto) (0.00-0.03) X10*3/uL Absolute Neuts (auto) (2.0-8.3) x10*3/uL Absolute Nucleated RBC (0.0-0.012) X10*3/uL Nucleated RBC % (auto) (0.0-0.2) /100WBC Sodium (135-145) mmol/L Potassium (3.3-5.1) mmol/L Chloride (96-108) mmol/L Carbon Dioxide (22-29) mmol/L Anion Gap (12-20) BUN (9-16) mg/dL Creatinine (0.5-1.4) mg/dL Estim Creat Clear Calc Estimated GFR Random Glucose (60-115) mg/dL Calcium (8.4-10.2) mg/dL Magnesium (1.6-2.6) mg/dL Total Bilirubin (0.0-1.0) mg/dL AST (5-31) U/L ALT (0-31) U/L Alkaline Phosphatase (39-117) U/L Troponin I High Sens (<3.5-17.0) ng/L Total Protein (6.5-8.0) g/dL Albumin (3.5-5.0) g/dL Urine Color YELLOW Urine Appearance HAZY Urine pH 6.5 (5.0-8.0) Ur Specific [place] 1.025 (1.005-1.025) Urine Protein 2+ H (NEG-TRACE) MG/DL Urine Glucose (UA) NEG (NEG) MG/DL Urine Ketones 5 (NEG) MG/DL Urine Blood TRACE (NEG) Urine Nitrite NEG (NEG) Ur Leukocyte Esterase NEG (NEG) Urine RBC 0-2 (0) /HPF Urine WBC 0-2 (0-4) /HPF Ur Squamous Epith Cells 3+ /LPF Urine Bacteria 1+ /LPF Urine Mucus 1+ /LPF Urine Yeast TRACE /HPF Urine Test NEGATIVE (NEGATIVE) Urine Opiates Screen (Not Detect) Urine Fentanyl Screen (Not Detect) Ur Barbiturates Screen (Not Detect) Ur Phencyclidine Scrn (Not Detect) Ur Amphetamines Screen (Not Detect) U Benzodiazepines Scrn (Not Detect) Urine Cocaine Screen (Not Detect) U Marijuana (THC) Screen (Not Detect) Ethyl Alcohol mg/dL COVID-19 (RISHABH) Negative (Negative) COVID-19 Clin Com See Note 09/01/21 09/01/21 09/01/21 Range/Units 18:34 18:37 18:37 WBC 4.5 L (4.8-10.8) X10*3/uL RBC 4.55 (4.20-5.50) X10*6/uL Hgb 15.5 (12.0-16.0) g/dl Hct 45.2 (37.0-47.0) % MCV 99.3 H (80.0-98.0) fL MCH 34.1 H (27.0-33.0) pg MCHC 34.3 (31.0-35.0) g/dl RDW 13.7 (11.0-16.0) % Plt Count 291 (160-400) X10*3/uL MPV 9.3 L (9.4-12.3) fL Immature Gran % (Auto) 0.7 H (0.0-0.4) % Neut % (Auto) 49.6 (45-73) % Lymph % (Auto) 38.6 (20-40) % [place] % (Auto) 10.2 (2-11) % Eos % (Auto) 0.2 (0-4) % Baso % (Auto) 0.7 (0-2) % Lymph # (Auto) 1.7 (1.2-4.9) X10*3/uL [place] # (Auto) 0.5 (0.1-1.2) X10*3/uL Eos # (Auto) 0.0 (0.0-0.4) X10*3/uL Baso # (Auto) 0.0 (0.0-0.2) X10*3/uL Abs Immat Gran (auto) 0.03 (0.00-0.03) X10*3/uL Absolute Neuts (auto) 2.2 (2.0-8.3) x10*3/uL Absolute Nucleated RBC 0.000 (0.0-0.012) X10*3/uL Nucleated RBC % (auto) 0.0 (0.0-0.2) /100WBC Sodium 143 (135-145) mmol/L Potassium 3.5 (3.3-5.1) mmol/L Chloride 107 (96-108) mmol/L Carbon Dioxide 23 (22-29) mmol/L Anion Gap 17 (12-20) BUN 3 L (9-16) mg/dL Creatinine 0.70 (0.5-1.4) mg/dL Estim Creat Clear Calc 85.3 Estimated GFR > 60 Random Glucose 101 (60-115) mg/dL Calcium 9.3 (8.4-10.2) mg/dL Magnesium 2.1 (1.6-2.6) mg/dL Total Bilirubin 0.3 (0.0-1.0) mg/dL AST 103 H (5-31) U/L ALT 32 H (0-31) U/L Alkaline Phosphatase 133 H (39-117) U/L Troponin I High Sens (<3.5-17.0) ng/L Total Protein 7.4 (6.5-8.0) g/dL Albumin 3.9 (3.5-5.0) g/dL Urine Color Urine Appearance Urine pH (5.0-8.0) Ur Specific [place] (1.005-1.025) Urine Protein (NEG-TRACE) MG/DL Urine Glucose (UA) (NEG) MG/DL Urine Ketones (NEG) MG/DL Urine Blood (NEG) Urine Nitrite (NEG) Ur Leukocyte Esterase (NEG) Urine RBC (0) /HPF Urine WBC (0-4) /HPF Ur Squamous Epith Cells /LPF Urine Bacteria /LPF Urine Mucus /LPF Urine Yeast /HPF Urine Test (NEGATIVE) Urine Opiates Screen Not Detected (Not Detect) Urine Fentanyl Screen POSITIVE H (Not Detect) Ur Barbiturates Screen Not Detected (Not Detect) Ur Phencyclidine Scrn Not Detected (Not Detect) Ur Amphetamines Screen Not Detected (Not Detect) U Benzodiazepines Scrn Not Detected (Not Detect) Urine Cocaine Screen Not Detected (Not Detect) U Marijuana (THC) Screen Not Detected (Not Detect) Ethyl Alcohol mg/dL COVID-19 (RISHABH) (Negative) COVID-19 Clin Com 09/01/21 09/01/21 09/01/21 Range/Units 18:37 18:37 21:37 WBC (4.8-10.8) X10*3/uL RBC (4.20-5.50) X10*6/uL Hgb (12.0-16.0) g/dl Hct (37.0-47.0) % MCV (80.0-98.0) fL MCH (27.0-33.0) pg MCHC (31.0-35.0) g/dl RDW (11.0-16.0) % Plt Count (160-400) X10*3/uL MPV (9.4-12.3) fL Immature Gran % (Auto) (0.0-0.4) % Neut % (Auto) (45-73) % Lymph % (Auto) (20-40) % [place] % (Auto) (2-11) % Eos % (Auto) (0-4) % Baso % (Auto) (0-2) % Lymph # (Auto) (1.2-4.9) X10*3/uL [place] # (Auto) (0.1-1.2) X10*3/uL Eos # (Auto) (0.0-0.4) X10*3/uL Baso # (Auto) (0.0-0.2) X10*3/uL Abs Immat Gran (auto) (0.00-0.03) X10*3/uL Absolute Neuts (auto) (2.0-8.3) x10*3/uL Absolute Nucleated RBC (0.0-0.012) X10*3/uL Nucleated RBC % (auto) (0.0-0.2) /100WBC Sodium (135-145) mmol/L Potassium (3.3-5.1) mmol/L Chloride (96-108) mmol/L Carbon Dioxide (22-29) mmol/L Anion Gap (12-20) BUN (9-16) mg/dL Creatinine (0.5-1.4) mg/dL Estim Creat Clear Calc Estimated GFR Random Glucose (60-115) mg/dL Calcium (8.4-10.2) mg/dL Magnesium (1.6-2.6) mg/dL Total Bilirubin (0.0-1.0) mg/dL AST (5-31) U/L ALT (0-31) U/L Alkaline Phosphatase (39-117) U/L Troponin I High Sens 7.9 7.3 (<3.5-17.0) ng/L Total Protein (6.5-8.0) g/dL Albumin (3.5-5.0) g/dL Urine Color Urine Appearance Urine pH (5.0-8.0) Ur Specific [place] (1.005-1.025) Urine Protein (NEG-TRACE) MG/DL Urine Glucose (UA) (NEG) MG/DL Urine Ketones (NEG) MG/DL Urine Blood (NEG) Urine Nitrite (NEG) Ur Leukocyte Esterase (NEG) Urine RBC (0) /HPF Urine WBC (0-4) /HPF Ur Squamous Epith Cells /LPF Urine Bacteria /LPF Urine Mucus /LPF Urine Yeast /HPF Urine Test (NEGATIVE) Urine Opiates Screen (Not Detect) Urine Fentanyl Screen (Not Detect) Ur Barbiturates Screen (Not Detect) Ur Phencyclidine Scrn (Not Detect) Ur Amphetamines Screen (Not Detect) U Benzodiazepines Scrn (Not Detect) Urine Cocaine Screen (Not Detect) U Marijuana (THC) Screen (Not Detect) Ethyl Alcohol 270 mg/dL COVID-19 (RISHABH) (Negative) COVID-19 Clin Com Imaging Data Chest x-ray: Attestation: I personally reviewed and interpreted this imaging study as follows: Radiologist's impression: FINDINGS: Normal cardiomediastinal silhouette. Adequate expansion of the lungs. No focal consolidation. No pleural effusion or pneumothorax. No acute osseous abnormality. XR/XR chest 2V IMPRESSION: No acute disease within the chest. No focal consolidation. ECG Data ECG #1: Attestation: I personally reviewed and interpreted this ECG as follows: ECG interpretation date: 09/01/21 ECG interpretation time: 18:47 Prior ECG tracings: available for review Interpretation: Ventricular rate of 109, CT normal, QRS normal, QT/QTC normal. EKG shows sinus tachycardia. No ST elevations or inversions concerning for ischemia. No significant changes when compared with EKG from August 12, 2021. Critical Care Time Critical Care Time Critical Care Time: No Discharge Plan Discharge Clinical Impression: Atypical chest pain, Fentanyl use disorder, moderate, Bronchitis Upper respiratory infection Qualifiers: URI type: unspecified viral URI Qualified Code(s): J06.9 - Acute upper respiratory infection, unspecified Patient Disposition: Home, Self-Care Instructions: Opioid Withdrawal (ED), Chest Wall Pain (ED), Narcotic Withdrawal (ED), Narcotic Use Disorder (ED), Opioid Use Disorder (ED) Additional Instructions: Take your medications as prescribed. If you were prescribed antibiotics today, it is important that you take your medication to their entirety, do not skip any doses, do not finish them early. Follow-up with your primary care provider this week. Return to the emergency department with new or worsening symptoms. Such as fevers, chills, nausea, vomiting, abdominal pain, chest pain, shortness of breath, weakness, dizziness, vision changes or headache In case of emergency call 911 Prescriptions: New azithromycin 250 mg tablet See Rx Instructions PO .COMPLEX Qty: 6 RF: 0 benzonatate 100 mg capsule 100 mg PO BID PRN (Reason: cough) Qty: 14 RF: 0 No Action cyclobenzaprine 10 mg tablet 10 mg PO TID PRN (Reason: muscle spasm) Qty: 14 RF: 0 lidocaine 4 % adhesive patch,medicated 1 patch topical DAILY PRN (Reason: pain) Qty: 10 RF: 0 ibuprofen 600 mg tablet 600 mg PO Q6H PRN (Reason: pain) Qty: 30 RF: 0 ondansetron 4 mg tablet,disintegrating 4 mg PO Q8H PRN (Reason: nausea and vomiting) Qty: 20 RF: 0 cefuroxime axetil 500 mg tablet 500 mg PO BID 7 Days Qty: 14 RF: 0 phenazopyridine [Pyridium] 100 mg tablet 100 mg PO TID PRN (Reason: pain) Qty: 6 RF: 0 Referrals: Physician,Unknown J [Primary Care Provider] - 2 days
[2021-09-01 18:13] VITALS: BP 130/95; BP 140/90; PULSE 120; PULSE 135; RESP 14; O2SAT 97; O2SAT 98; BMI 20.5
[2021-09-01 18:42] LABS: MANUAL DIFF FLAG NO
[2021-09-01 18:46] LABS: Appearance Urine HAZY; Color Urine YELLOW; Glucose Urine UA NEG (NEG); Leukocyte Esterase Urine NEG (NEG); Nitrite Urine NEG (NEG); PH 6.5 (5.0-8.0); Specific Gravity - Urine 1.025 (1.005-1.025); UACC Culture Trigger NO; Urine Blood TRACE (NEG); Urine Ketones 5 MG/DL (NEG); Urine Protein 2+ MG/DL (NEG-TRACE)
[2021-09-01 18:47] LABS: UPreg QC Valid YES; Urine Pregnancy NEGATIVE (NEGATIVE)
[2021-09-01 18:50] LABS: Basophils Percent Auto 0.7 % (0-2); Eosinophils Percent Auto 0.2 % (0-4); Hematocrit 45.2 % (37.0-47.0); Hemoglobin 15.5 g/dl (12.0-16.0); Imm Gran Abs Auto 0.03 X10*3/uL (0.00-0.03); Imm Gran Pct Auto 0.7 % (0.0-0.4); Lymphocytes Absolute Auto 1.7 X10*3/uL (1.2-4.9); Lymphocytes Percent Auto 38.6 % (20-40); Mean Corpuscular HGB Conc 34.3 g/dl (31.0-35.0); Mean Corpuscular Hemoglobin 34.1 pg (27.0-33.0); Mean Corpuscular Volume 99.3 fL (80.0-98.0); Mean Platelet Volume 9.3 fL (9.4-12.3); Monocytes Absolute Auto 0.5 X10*3/uL (0.1-1.2); Monocytes Percent Auto 10.2 % (2-11); Neutrophils Absolute Auto 2.2 x10*3/uL (2.0-8.3); Neutrophils Percent Auto 49.6 % (45-73); Platelet Count 291 X10*3/uL (160-400); Red Blood Count 4.55 X10*6/uL (4.20-5.50); Red Cell Distribution Width 13.7 % (11.0-16.0); White Blood Count 4.5 X10*3/uL (4.8-10.8)
[2021-09-01 18:54] LABS: Mucus Urine 1+ /LPF; Squamous Epithelial Cell Urine 3+ /LPF
[2021-09-01 18:55] LABS: COVID-19 Test Negative (Negative); IDNOW Serial# 9DD0AD1C
[2021-09-01 18:55] LABS: Bacteria Urine 1+ /LPF
[2021-09-01 18:56] LABS: Ethanol 270 mg/dL
[2021-09-01 18:56] LABS: RBC Urine 0-2 /HPF (0); WBC Urine 0-2 /HPF (0-4)
[2021-09-01 18:59] LABS: Amphetamine Screen Urine Not Detected (Not Detect); Barbiturates, Urine Not Detected (Not Detect); Benzodiazepines Screen Urine Not Detected (Not Detect); Cannabinoid Screen Urine Not Detected (Not Detect); Cocaine Screen Urine Not Detected (Not Detect); Fentanyl, urine POSITIVE (Not Detect); Opiate Screen Urine Not Detected (Not Detect); Phencyclidine Screen Urine Not Detected (Not Detect)
[2021-09-01 19:02] LABS: Alanine Aminotransferase 32 U/L (0-31); Albumin Level 3.9 g/dL (3.5-5.0); Alkaline Phosphatase 133 U/L (39-117); Anion Gap 17 (12-20); Aspartate Amino Transferase 103 U/L (5-31); Bilirubin Total 0.3 mg/dL (0.0-1.0); Blood Urea Nitrogen 3 mg/dL (9-16); Calcium 9.3 mg/dL (8.4-10.2); Carbon Dioxide 23 mmol/L (22-29); Chloride 107 mmol/L (96-108); Creatinine Clr Calc Pharmacy 85.3; Estimated Glomerular Filt Rate > 60; Glucose Random 101 mg/dL (60-115); Magnesium 2.1 mg/dL (1.6-2.6); Potassium 3.5 mmol/L (3.3-5.1); Sodium 143 mmol/L (135-145); Total Protein 7.4 g/dL (6.5-8.0)
[2021-09-01 19:03] LABS: Troponin-I High Sensitivity 7.9 ng/L (<3.5-17.0)
[2021-09-01 20:15] VITALS: BP 134/99; PULSE 118; RESP 16; TEMP 37.4; O2SAT 98
[2021-09-01] MEDS: 0.9 % Sodium Chloride 1,000 ML 999 ML IV (20:20)
[2021-09-01 21:31] VITALS: BP 137/95; PULSE 115; RESP 16; O2SAT 98
[2021-09-01 22:14] LABS: Troponin-I High Sensitivity 7.3 ng/L (<3.5-17.0)
[2021-09-01 22:39] VITALS: BP 127/89; PULSE 111; RESP 16; O2SAT 97
== END 2021-09-01 22:44 | disposition home or self-care (01) ==
PROVIDERS: Physician Assistant; Emergency Provider Emergency Medicine
DX: J06.9 Acute upper respiratory infection, unspecified (principal); J40 Bronchitis, not specified as acute or chronic; R07.89 Other chest pain; Z20.822 Contact with and (suspected) exposure to COVID-19; F11.93 Opioid use, unspecified with withdrawal; D72.819 Decreased white blood cell count, unspecified
CPT/HCPCS: 36415; 71046; 80053; 80307; 81001; 81025; 82077; 83735; 84484; 85025; 87635; 93005; 96360; 99284